=== PATIENT | male | born 1995 | race Caucasian/White ===

== ENCOUNTER 2018-11-06 17:33 | Emergency (ER) | payer MEDICAID, SELFPAY ==
[2018-11-06 17:35] VITALS: BP 151/99; PULSE 111; RESP 15; TEMP 36.2; O2SAT 99; BMI 20.7
--- NOTE | 2018-11-06 19:49 | ED.DCSUM_ITS ---
- ER Visit Summary Date of Service: 11/06/18 Chief Complaint: [Soft tissue swelling left forearm] History of Present Illness: The patient is a 23 M [to the emergency department with a soft tissue swelling to his left forearm that he noticed a week ago. Patient denies any injury. He denies any fever. He is right-hand dominant. Patient does admit to a remote history of heroin abuse and initially told me that it been over a year since he used. Patient then thought about it some more and stated that he thinks the suspected abscess is from missing when he was trying to inject heroin recently. Patient denies any fevers.] Physical Examination: [Left forearm-patient has a soft tissue swelling measuring 2.5 cm to the posterior aspect of the forearm with some mild erythema. No lymphangitic streaking noted. Neurovascular intact distally.] Test Results: [None indicated] Emergency Department Course and Treatment: [Was offered incision and drainage of suspected abscess to which she agreed. Area sterilely draped and prepped. Area anesthetized locally with 1% lidocaine total 2 cc. Using an 11 blade a 1.5 cm incision was made with large amount of purulent debris expressed it was free-flowing. I used curved hemostats undermined the soft tissues. Clean dressing was applied after irrigating the cavity. Patient tolerated procedure well.] Treatment Plan: [Patient will be started on Bactrim and Keflex. Patient advised to follow-up with physician operations controller for no doc within the next 3 to 5 days for wound check. Patient advised to return if increasing pain, redness, swelling, or conditions worsen anyway.] Disposition: [Discharged home stable condition.] Impression: [Soft tissue abscess left forearm with incision and drainage] This note was generated with [employer] dictation software. It may contain incorrect words, spelling, and punctuation that were not noted in review of the chart prior to signing ED Disposition - Plan for ED Patient: Referrals: Care Physician,No Primary [Primary Care Provider] -
--- NOTE | 2018-11-06 19:51 | ED.DEP ---
ED Disposition - Plan for ED Patient: Instructions: ABSCESS, Incision and Drainage Prescriptions: Smz/Tmp Ds [Bactrim Ds] 1 tab PO BID #20 tab Prescription Printed Cephalexin [Keflex] 500 mg PO Q6 #40 cap Prescription Printed Referrals: Care Physician,No Primary [Primary Care Provider] - Bill Interiano III, MD [STAFF PHYSICIAN] - 3-5 Days
[2018-11-06 19:54] VITALS: BP 132/71; PULSE 84; RESP 18; O2SAT 94
[2018-11-06] MEDS: Cephalexin 250 MG Capsule 500 MG PO (19:58)
[2018-11-06] MEDS: Smz/Tmp Ds Tablet 1 TABLET PO (19:58)
== END 2018-11-06 20:01 | disposition home or self-care (01) ==
LOC: ED 18:27
PROVIDERS: Emergency Provider Emergency Medicine
DX: L02.414 Cutaneous abscess of left upper limb (principal); F11.10 Opioid abuse, uncomplicated; Z72.89 Other problems related to lifestyle
CPT/HCPCS: 10060; 99283; J7030